=== PATIENT | female | born 1990 | race Caucasian/White ===

== ENCOUNTER 2018-03-21 09:28 | Inpatient (IN) | payer OTHER ==
[~2018-03-21] VITALS: Ht 157.5 cm; Wt 64.0 kg
[2018-03-21 09:58] VITALS: BP 107/66
[2018-03-21] MEDS ORDERED: INDOMETHACIN 50 MG CAPSULE PO ONE (11:00)
[2018-03-21] MEDS ORDERED: BETAMETHASONE 6 MG/ML, 5ML IM ONE (11:07)
[2018-03-21] MEDS ORDERED: INDOMETHACIN 50 MG CAPSULE ONE (11:08)
[2018-03-21] MEDS: BETAMETHASONE 6 MG/ML, 5ML IM SCH (11:21)
[2018-03-21] MEDS ORDERED: PENICILLIN GK 5,000,000 UNITS in SODIUM CHLORIDE 0.9% 100 ML IVPB ONE (11:30)
[2018-03-21 11:43] LABS: MICROSCOPIC NOT IND
[2018-03-21] MEDS: LACTATED RINGERS 1,000 ML IV SCH (11:50)
[2018-03-21 12:26] LABS: BASOPHILS # (AUTO) 0.05 x10^3/uL (0-0.1); BASOPHILS % (AUTO) 0 % (0-1); EOSINOPHILS # (AUTO) 0.01 x10^3/uL (0-0.4); EOSINOPHILS % (AUTO) 0 % (1-7); LYMPHOCYTES # (AUTO) 2.24 x10^3/uL (1-3.4); LYMPHOCYTES % (AUTO) 18 % (22-44); MD NO; MEAN CORPUSCULAR HEMOGLOBIN 29.6 pg (27.0-34.8); MEAN CORPUSCULAR HGB CONC 33.2 g/dL (32.4-35.8); MEAN CORPUSCULAR VOLUME 89.3 fL (80-100); MEAN PLATELET VOLUME 8.2 fL (7.4-10.4); MONOCYTES # (AUTO) 0.47 x10^3/uL (0.2-0.8); MONOCYTES % (AUTO) 4 % (2-9); NEUTROPHILS # (AUTO) 9.77 x10^3/uL (1.8-6.8); NEUTROPHILS % (AUTO) 78 % (42-75); PLATELET COUNT 324 x10^3/uL (130-400); RED BLOOD COUNT 4.09 x10^6/uL (3.82-5.3); RED CELL DISTRIBUTION WIDTH 13.4 % (9.6-15.2)
[2018-03-21] MEDS: PENICILLIN GK 2,500,000 UNITS in DEXTROSE 5% 100 ML IVPB SCH ×3 (15:30→23:40)
[2018-03-21] MEDS ORDERED: INDOMETHACIN 25 MG CAPSULE ONE ×3 (15:36→23:36)
[2018-03-21] MEDS: INDOMETHACIN 25 MG CAPSULE PO SCH ×3 (15:38→23:40)
[2018-03-21] MEDS ORDERED: INSULIN LISPRO 100 UNITS/ML, PEN SQ-INSULIN SCH ×3 (16:00→17:00)
[2018-03-21] MEDS ORDERED: INSULIN REGULAR 100 UNITS/ML, 3ML VIAL SQ-INSULIN SCH (17:00)
[2018-03-21 20:06] VITALS: BP 116/66
[2018-03-21] MEDS: INSULIN GLARGINE 100 UNITS/ML, PEN SQ-INSULIN SCH (21:10)
[2018-03-21] MEDS: INSULIN LISPRO 100 UNITS/ML, PEN SQ-INSULIN SCH (21:13)
[2018-03-21] MEDS ORDERED: PRENATAL VIT/IRON/FA 1 EACH TABLET ONE (21:58)
[2018-03-21] MEDS ORDERED: CALCIUM CARBONATE 500 MG TAB.CHEW PO PRN (22:00)
[2018-03-21] MEDS: PRENATAL VIT/IRON/FA 1 EACH TABLET PO SCH (22:11)
[2018-03-21] MEDS ORDERED: ACETAMINOPHEN 325 MG TABLET PO PRN (22:30)
[2018-03-22] MEDS ORDERED: INDOMETHACIN 25 MG CAPSULE ONE ×5 (03:08→20:20)
[2018-03-22] MEDS ORDERED: METHYLERGONOVINE 0.2 MG/ML IM ONE (03:11)
[2018-03-22] MEDS: INDOMETHACIN 25 MG CAPSULE PO SCH ×5 (03:41→20:25)
[2018-03-22] MEDS: PENICILLIN GK 2,500,000 UNITS in DEXTROSE 5% 100 ML IVPB SCH ×6 (03:41→20:25)
[2018-03-22] MEDS: INSULIN LISPRO 100 UNITS/ML, PEN SQ-INSULIN SCH ×4 (07:54→16:40)
[2018-03-22] MEDS: SODIUM CHLORIDE FLUSH 3ML SYRINGE IVF PRN ×3 (09:18→18:20)
[2018-03-22] MEDS: BETAMETHASONE 6 MG/ML, 5ML IM SCH (11:58)
[2018-03-22] MEDS: INSULIN GLARGINE 100 UNITS/ML, PEN SQ-INSULIN SCH (21:09)
[2018-03-23] MEDS ORDERED: INDOMETHACIN 25 MG CAPSULE ONE ×4 (01:04→13:41)
[2018-03-23] MEDS: INDOMETHACIN 25 MG CAPSULE PO SCH ×4 (01:05→13:43)
[2018-03-23] MEDS: PENICILLIN GK 2,500,000 UNITS in DEXTROSE 5% 100 ML IVPB SCH ×4 (01:05→13:42)
[2018-03-23] MEDS ORDERED: PRENATAL VIT/IRON/FA 1 EACH TABLET ONE (08:58)
[2018-03-23] MEDS ORDERED: DOCUSATE 100 MG CAPSULE ONE (08:58)
[2018-03-23] MEDS: LACTATED RINGERS 1,000 ML IV SCH (09:17)
[2018-03-23] MEDS: DOCUSATE 100 MG CAPSULE PO SCH (09:18)
[2018-03-23] MEDS: INSULIN LISPRO 100 UNITS/ML, PEN SQ-INSULIN SCH ×4 (09:45→21:00)
[2018-03-23] MEDS ORDERED: INSULIN LISPRO 100 UNITS/ML, PEN SQ-INSULIN ONE (12:00)
[2018-03-23] MEDS ORDERED: PSYLLIUM PACKET PO PRN (16:30)
[2018-03-23 19:59] VITALS: BP 106/59
[2018-03-23] MEDS: PRENATAL VIT/IRON/FA 1 EACH TABLET PO SCH (21:00)
[2018-03-23] MEDS: INSULIN GLARGINE 100 UNITS/ML, PEN SQ-INSULIN SCH (21:03)
[2018-03-24] MEDS: INSULIN LISPRO 100 UNITS/ML, PEN SQ-INSULIN SCH ×4 (07:39→16:44)
[2018-03-24] MEDS ORDERED: DOCUSATE 100 MG CAPSULE ONE ×2 (08:02→20:58)
[2018-03-24] MEDS: DOCUSATE 100 MG CAPSULE PO SCH ×2 (08:45→21:08)
[2018-03-24] MEDS: SODIUM CHLORIDE FLUSH 3ML SYRINGE IVF PRN (08:57)
[2018-03-24] MEDS: INSULIN GLARGINE 100 UNITS/ML, PEN SQ-INSULIN SCH (21:06)
[2018-03-24 21:09] VITALS: BP 115/59
[2018-03-25] MEDS: SODIUM CHLORIDE FLUSH 3ML SYRINGE IVF PRN (09:00)
[2018-03-25] MEDS: DOCUSATE 100 MG CAPSULE PO SCH (09:00)
[2018-03-25] MEDS: PRENATAL VIT/IRON/FA 1 EACH TABLET PO SCH (09:00)
[2018-03-25] MEDS ORDERED: DOCUSATE 100 MG CAPSULE ONE (20:08)
[2018-03-25] MEDS: INSULIN GLARGINE 100 UNITS/ML, PEN SQ-INSULIN SCH (21:04)
[2018-03-26] MEDS: INSULIN LISPRO 100 UNITS/ML, PEN SQ-INSULIN SCH ×2 (07:37→07:45)
[2018-03-26] MEDS: SODIUM CHLORIDE FLUSH 3ML SYRINGE IVF PRN ×2 (08:21→21:00)
[2018-03-26] MEDS ORDERED: DOCUSATE 100 MG CAPSULE ONE (08:48)
[2018-03-26] MEDS: DOCUSATE 100 MG CAPSULE PO SCH (08:50)
[2018-03-26] MEDS: PRENATAL VIT/IRON/FA 1 EACH TABLET PO SCH ×2 (09:00→21:00)
[2018-03-26] MEDS: INSULIN GLARGINE 100 UNITS/ML, PEN SQ-INSULIN SCH (21:00)
[2018-03-27] MEDS: INSULIN LISPRO 100 UNITS/ML, PEN SQ-INSULIN SCH ×3 (07:00→12:13)
[2018-03-27] MEDS ORDERED: ERYTHROMYCIN 250 MG in SODIUM CHLORIDE 0.9% 100 ML IV SCH (14:00)
[2018-03-27] MEDS: AMPICILLIN 2 GM in SODIUM CHLORIDE 0.9% 100 ML IV SCH ×2 (14:45→20:05)
[2018-03-27] MEDS ORDERED: LACTATED RINGERS 1,000 ML IV SCH ×2 (15:00→15:01)
[2018-03-27] MEDS ORDERED: HYDROXYZINE PAMOATE 50MG CAP PO PRN (16:00)
[2018-03-27] MEDS: AZITHROMYCIN 500 MG in SODIUM CHLORIDE 0.9% 250 ML IV SCH (16:30)
[2018-03-27] MEDS ORDERED: DOCUSATE 100 MG CAPSULE ONE (19:59)
[2018-03-27] MEDS: DOCUSATE 100 MG CAPSULE PO SCH ×2 (20:04→21:00)
[2018-03-27] MEDS: SODIUM CHLORIDE FLUSH 3ML SYRINGE IVF PRN (20:06)
[2018-03-27] MEDS: PRENATAL VIT/IRON/FA 1 EACH TABLET PO SCH (21:00)
[2018-03-28] MEDS: AMPICILLIN 2 GM in SODIUM CHLORIDE 0.9% 100 ML IV SCH ×3 (01:51→19:47)
[2018-03-28] MEDS ORDERED: DOCUSATE 100 MG CAPSULE ONE (07:57)
[2018-03-28] MEDS: DOCUSATE 100 MG CAPSULE PO SCH ×2 (07:59→09:00)
[2018-03-28] MEDS: INSULIN LISPRO 100 UNITS/ML, PEN SQ-INSULIN SCH ×3 (08:01→16:39)
[2018-03-28] MEDS: PRENATAL VIT/IRON/FA 1 EACH TABLET PO SCH (09:00)
[2018-03-28] MEDS: AZITHROMYCIN 500 MG in SODIUM CHLORIDE 0.9% 250 ML IV SCH (14:50)
[2018-03-28] MEDS: SODIUM CHLORIDE FLUSH 3ML SYRINGE IVF PRN (19:46)
[2018-03-29] MEDS: AMPICILLIN 2 GM in SODIUM CHLORIDE 0.9% 100 ML IV SCH ×2 (01:57→08:50)
[2018-03-29 08:00] VITALS: BP 114/71
[2018-03-29] MEDS ORDERED: PRENATAL VIT/IRON/FA 1 EACH TABLET ONE (08:12)
[2018-03-29] MEDS ORDERED: DOCUSATE 100 MG CAPSULE ONE (08:12)
[2018-03-29] MEDS ORDERED: AZITHROMYCIN 250 MG TABLET ONE (08:12)
[2018-03-29] MEDS: DOCUSATE 100 MG CAPSULE PO SCH (08:48)
[2018-03-29] MEDS: PRENATAL VIT/IRON/FA 1 EACH TABLET PO SCH (09:00)
[2018-03-29] MEDS ORDERED: ERYTHROMYCIN 400 MG/5 ML PO SCH (14:00)
[2018-03-29] MEDS: AZITHROMYCIN 250 MG TABLET PO SCH (14:30)
[2018-03-29] MEDS ORDERED: AMPICILLIN 250MG CAPSULE PO SCH ×2 (16:00)
[2018-03-29] MEDS: AMOXICILLIN 250 MG CAPSULE PO SCH (19:22)
[2018-03-30] MEDS ORDERED: AZITHROMYCIN 250 MG TABLET ONE (07:59)
[2018-03-30] MEDS ORDERED: DOCUSATE 100 MG CAPSULE ONE (08:00)
[2018-03-30] MEDS: AZITHROMYCIN 250 MG TABLET PO SCH (09:00)
[2018-03-30] MEDS: PRENATAL VIT/IRON/FA 1 EACH TABLET PO SCH (09:00)
[2018-03-30] MEDS: AMOXICILLIN 250 MG CAPSULE PO SCH ×3 (09:00→20:56)
[2018-03-30] MEDS: DOCUSATE 100 MG CAPSULE PO SCH (09:05)
[2018-03-30] MEDS: INSULIN GLARGINE 100 UNITS/ML, PEN SQ-INSULIN SCH (20:54)
[2018-03-30] MEDS: SODIUM CHLORIDE FLUSH 3ML SYRINGE IVF PRN (21:00)
[2018-03-31 07:30] VITALS: BP 108/70
[2018-03-31] MEDS ORDERED: AMOXICILLIN 250 MG CAPSULE ONE ×3 (08:51→21:08)
[2018-03-31] MEDS ORDERED: DOCUSATE 100 MG CAPSULE ONE (08:51)
[2018-03-31] MEDS ORDERED: AZITHROMYCIN 250 MG TABLET ONE (08:51)
[2018-03-31] MEDS: DOCUSATE 100 MG CAPSULE PO SCH (08:53)
[2018-03-31] MEDS: AZITHROMYCIN 250 MG TABLET PO SCH (08:53)
[2018-03-31] MEDS: AMOXICILLIN 250 MG CAPSULE PO SCH ×3 (08:53→21:10)
[2018-03-31] MEDS: SODIUM CHLORIDE FLUSH 3ML SYRINGE IVF PRN (08:54)
[2018-03-31] MEDS: PRENATAL VIT/IRON/FA 1 EACH TABLET PO SCH (09:00)
[2018-03-31] MEDS: INSULIN LISPRO 100 UNITS/ML, PEN SQ-INSULIN SCH (16:43)
[2018-03-31] MEDS: INSULIN GLARGINE 100 UNITS/ML, PEN SQ-INSULIN SCH (21:10)
[2018-04-01] MEDS ORDERED: INSULIN LISPRO 100 UNITS/ML, PEN SQ-INSULIN SCH ×3 (07:30→12:00)
[2018-04-01 08:11] VITALS: BP 103/62
[2018-04-01] MEDS ORDERED: AMOXICILLIN 250 MG CAPSULE ONE ×3 (08:59→23:22)
[2018-04-01] MEDS: PRENATAL VIT/IRON/FA 1 EACH TABLET PO SCH (09:00)
[2018-04-01] MEDS: DOCUSATE 100 MG CAPSULE PO SCH ×3 (09:00→21:00)
[2018-04-01] MEDS ORDERED: AZITHROMYCIN 250 MG TABLET ONE (09:00)
[2018-04-01] MEDS: AMOXICILLIN 250 MG CAPSULE PO SCH ×3 (09:03→23:25)
[2018-04-01] MEDS: AZITHROMYCIN 250 MG TABLET PO SCH (09:03)
[2018-04-01] MEDS ORDERED: DOCUSATE 100 MG CAPSULE ONE (09:05)
[2018-04-01] MEDS: SODIUM CHLORIDE FLUSH 3ML SYRINGE IVF PRN ×2 (09:07→20:00)
[2018-04-01] MEDS: INSULIN LISPRO 100 UNITS/ML, PEN SQ-INSULIN SCH ×3 (09:14→16:32)
[2018-04-01] MEDS: INSULIN GLARGINE 100 UNITS/ML, PEN SQ-INSULIN SCH (21:00)
[2018-04-02 05:11] LABS: BASOPHILS # (AUTO) 0.04 x10^3/uL (0-0.1); BASOPHILS % (AUTO) 0 % (0-1); EOSINOPHILS # (AUTO) 0.04 x10^3/uL (0-0.4); EOSINOPHILS % (AUTO) 0 % (1-7); LYMPHOCYTES # (AUTO) 3.04 x10^3/uL (1-3.4); LYMPHOCYTES % (AUTO) 22 % (22-44); MD NO; MEAN CORPUSCULAR HEMOGLOBIN 29.6 pg (27.0-34.8); MEAN CORPUSCULAR HGB CONC 33.3 g/dL (32.4-35.8); MEAN CORPUSCULAR VOLUME 88.7 fL (80-100); MEAN PLATELET VOLUME 8.7 fL (7.4-10.4); MONOCYTES # (AUTO) 0.73 x10^3/uL (0.2-0.8); MONOCYTES % (AUTO) 5 % (2-9); NEUTROPHILS # (AUTO) 9.87 x10^3/uL (1.8-6.8); NEUTROPHILS % (AUTO) 72 % (42-75); PLATELET COUNT 289 x10^3/uL (130-400); RED BLOOD COUNT 4.09 x10^6/uL (3.82-5.3); RED CELL DISTRIBUTION WIDTH 13.7 % (9.6-15.2)
[2018-04-02] MEDS: INSULIN LISPRO 100 UNITS/ML, PEN SQ-INSULIN SCH ×3 (07:40→16:41)
[2018-04-02] MEDS ORDERED: AZITHROMYCIN 250 MG TABLET ONE (08:25)
[2018-04-02] MEDS ORDERED: AMOXICILLIN 250 MG CAPSULE ONE ×3 (08:25→21:10)
[2018-04-02] MEDS ORDERED: DOCUSATE 100 MG CAPSULE ONE ×2 (08:25→20:27)
[2018-04-02 08:43] VITALS: BP 119/74
[2018-04-02] MEDS: DOCUSATE 100 MG CAPSULE PO SCH ×4 (08:43→21:06)
[2018-04-02] MEDS: AMOXICILLIN 250 MG CAPSULE PO SCH ×3 (08:44→21:00)
[2018-04-02] MEDS: AZITHROMYCIN 250 MG TABLET PO SCH (08:44)
[2018-04-02] MEDS: PRENATAL VIT/IRON/FA 1 EACH TABLET PO SCH (09:00)
[2018-04-02 19:35] VITALS: BP 112/71
[2018-04-02] MEDS: INSULIN GLARGINE 100 UNITS/ML, PEN SQ-INSULIN SCH (21:00)
[2018-04-03] MEDS: INSULIN LISPRO 100 UNITS/ML, PEN SQ-INSULIN SCH ×3 (08:08→16:47)
[2018-04-03] MEDS ORDERED: AMOXICILLIN 250 MG CAPSULE ONE (08:11)
[2018-04-03] MEDS: AMOXICILLIN 250 MG CAPSULE PO SCH (08:14)
[2018-04-03] MEDS: PRENATAL VIT/IRON/FA 1 EACH TABLET PO SCH (09:00)
[2018-04-03] MEDS: DOCUSATE 100 MG CAPSULE PO SCH ×3 (09:00→21:00)
[2018-04-03] MEDS ORDERED: DOCUSATE 100 MG CAPSULE ONE (16:48)
[2018-04-03] MEDS: INSULIN GLARGINE 100 UNITS/ML, PEN SQ-INSULIN SCH (21:00)
[2018-04-03 22:58] VITALS: BP 117/71
[2018-04-04] MEDS: INSULIN LISPRO 100 UNITS/ML, PEN SQ-INSULIN SCH ×4 (07:45→16:45)
[2018-04-04] MEDS: PRENATAL VIT/IRON/FA 1 EACH TABLET PO SCH (09:00)
[2018-04-04] MEDS: DOCUSATE 100 MG CAPSULE PO SCH ×3 (09:00→21:00)
[2018-04-04] MEDS ORDERED: DOCUSATE 100 MG CAPSULE ONE (20:45)
[2018-04-04] MEDS: INSULIN GLARGINE 100 UNITS/ML, PEN SQ-INSULIN SCH (20:52)
[2018-04-05] MEDS: INSULIN LISPRO 100 UNITS/ML, PEN SQ-INSULIN SCH ×3 (07:50→16:30)
[2018-04-05] MEDS: DOCUSATE 100 MG CAPSULE PO SCH ×3 (09:00→21:00)
[2018-04-05] MEDS: PRENATAL VIT/IRON/FA 1 EACH TABLET PO SCH (09:00)
[2018-04-05] MEDS ORDERED: DOCUSATE 100 MG CAPSULE ONE ×2 (14:19→20:56)
[2018-04-05] MEDS: INSULIN GLARGINE 100 UNITS/ML, PEN SQ-INSULIN SCH (20:59)
[2018-04-06] MEDS: INSULIN LISPRO 100 UNITS/ML, PEN SQ-INSULIN SCH ×4 (08:11→16:43)
[2018-04-06 08:15] VITALS: BP 105/66
[2018-04-06] MEDS: DOCUSATE 100 MG CAPSULE PO SCH ×2 (08:47→16:46)
[2018-04-06] MEDS: PRENATAL VIT/IRON/FA 1 EACH TABLET PO SCH (16:46)
[2018-04-06] MEDS: INSULIN GLARGINE 100 UNITS/ML, PEN SQ-INSULIN SCH (21:00)
[2018-04-07] MEDS: INSULIN LISPRO 100 UNITS/ML, PEN SQ-INSULIN SCH ×4 (07:46→18:04)
[2018-04-07] MEDS: DOCUSATE 100 MG CAPSULE PO SCH ×2 (07:47→21:07)
[2018-04-07] MEDS: PRENATAL VIT/IRON/FA 1 EACH TABLET PO SCH (09:00)
[2018-04-07] MEDS ORDERED: DOCUSATE 100 MG CAPSULE ONE (21:07)
[2018-04-07] MEDS: INSULIN GLARGINE 100 UNITS/ML, PEN SQ-INSULIN SCH (21:08)
[2018-04-08] MEDS: INSULIN LISPRO 100 UNITS/ML, PEN SQ-INSULIN SCH ×2 (07:53→12:11)
[2018-04-08] MEDS: PRENATAL VIT/IRON/FA 1 EACH TABLET PO SCH (09:00)
[2018-04-08] MEDS: DOCUSATE 100 MG CAPSULE PO SCH ×2 (09:00→21:00)
[2018-04-08] MEDS: INSULIN LISPRO 100 UNITS/ML, PEN SQ-INSULIN PRN (17:25)
[2018-04-08 20:01] VITALS: BP 118/65
[2018-04-08] MEDS: INSULIN GLARGINE 100 UNITS/ML, PEN SQ-INSULIN SCH (21:08)
[2018-04-09] MEDS: INSULIN LISPRO 100 UNITS/ML, PEN SQ-INSULIN PRN (07:58)
[2018-04-09 08:02] VITALS: BP 109/69
[2018-04-09] MEDS ORDERED: DOCUSATE 100 MG CAPSULE ONE ×2 (08:44→20:47)
[2018-04-09] MEDS: PRENATAL VIT/IRON/FA 1 EACH TABLET PO SCH (09:00)
[2018-04-09] MEDS: DOCUSATE 100 MG CAPSULE PO SCH (09:09)
[2018-04-09] MEDS: INSULIN LISPRO 100 UNITS/ML, PEN SQ-INSULIN SCH ×2 (11:59→17:22)
[2018-04-09] MEDS: INSULIN GLARGINE 100 UNITS/ML, PEN SQ-INSULIN SCH (21:00)
[2018-04-10] MEDS ORDERED: DOCUSATE 100 MG CAPSULE ONE (08:01)
[2018-04-10] MEDS: DOCUSATE 100 MG CAPSULE PO SCH ×2 (08:04→21:00)
[2018-04-10] MEDS: INSULIN LISPRO 100 UNITS/ML, PEN SQ-INSULIN SCH ×3 (08:04→17:36)
[2018-04-10] MEDS: INSULIN GLARGINE 100 UNITS/ML, PEN SQ-INSULIN SCH (21:00)
[2018-04-11] MEDS ORDERED: DOCUSATE 100 MG CAPSULE ONE (07:11)
[2018-04-11] MEDS: DOCUSATE 100 MG CAPSULE PO SCH ×2 (08:06→21:00)
[2018-04-11] MEDS: INSULIN LISPRO 100 UNITS/ML, PEN SQ-INSULIN PRN (08:09)
[2018-04-11] MEDS: INSULIN LISPRO 100 UNITS/ML, PEN SQ-INSULIN SCH ×3 (12:15→18:24)
[2018-04-11] MEDS ORDERED: DIPHENHYDRAMINE/ZINC CRM 2%, 30GM TP PRN (19:30)
[2018-04-11] MEDS: INSULIN GLARGINE 100 UNITS/ML, PEN SQ-INSULIN SCH (21:10)
[2018-04-12] MEDS: INSULIN LISPRO 100 UNITS/ML, PEN SQ-INSULIN SCH ×2 (08:12→12:01)
[2018-04-12] MEDS: DOCUSATE 100 MG CAPSULE PO SCH ×2 (09:00→21:00)
[2018-04-12 09:26] VITALS: BP 91/53
[2018-04-12] MEDS: INSULIN LISPRO 100 UNITS/ML, PEN SQ-INSULIN PRN (16:13)
[2018-04-12] MEDS: INSULIN GLARGINE 100 UNITS/ML, PEN SQ-INSULIN SCH (21:08)
[2018-04-12 21:17] VITALS: BP 101/62
[2018-04-13] MEDS: INSULIN LISPRO 100 UNITS/ML, PEN SQ-INSULIN SCH ×4 (07:00→18:13)
[2018-04-13] MEDS ORDERED: LACTATED RINGERS 1,000 ML IV SCH (08:43)
[2018-04-13] MEDS ORDERED: OXYTOCIN 30U/ 0.9% NaCL 500ML 500 ML IV ONE ×2 (08:43)
[2018-04-13] MEDS ORDERED: OXYTOCIN 30U/ 0.9% NaCL 500ML 500 ML ONE ×2 (08:52→13:53)
[2018-04-13] MEDS ORDERED: NEWBORN KIT ONE (08:52)
[2018-04-13 09:00] LABS: BASOPHILS # (AUTO) 0.12 x10^3/uL (0-0.1); BASOPHILS % (AUTO) 1 % (0-1); EOSINOPHILS # (AUTO) 0.22 x10^3/uL (0-0.4); EOSINOPHILS % (AUTO) 2 % (1-7); LYMPHOCYTES # (AUTO) 2.25 x10^3/uL (1-3.4); LYMPHOCYTES % (AUTO) 16 % (22-44); MD NO; MEAN CORPUSCULAR HEMOGLOBIN 29.2 pg (27.0-34.8); MEAN CORPUSCULAR HGB CONC 33.2 g/dL (32.4-35.8); MEAN CORPUSCULAR VOLUME 87.9 fL (80-100); MEAN PLATELET VOLUME 8.4 fL (7.4-10.4); MONOCYTES # (AUTO) 0.76 x10^3/uL (0.2-0.8); MONOCYTES % (AUTO) 6 % (2-9); NEUTROPHILS # (AUTO) 10.43 x10^3/uL (1.8-6.8); NEUTROPHILS % (AUTO) 76 % (42-75); PLATELET COUNT 268 x10^3/uL (130-400); RED BLOOD COUNT 4.24 x10^6/uL (3.82-5.3); RED CELL DISTRIBUTION WIDTH 14.6 % (9.6-15.2)
[2018-04-13] MEDS ORDERED: ONDANSETRON 2MG/ML, 2ML IVPush PRN (09:00)
[2018-04-13] MEDS ORDERED: FENTANYL PF 100 MCG/2ML IV PRN (09:00)
[2018-04-13] MEDS ORDERED: FENTANYL PF 100 MCG/2ML IVPush PRN (09:00)
[2018-04-13] MEDS ORDERED: SODIUM CITRATE/CITRIC ACID 30 ML UDC PO PRN (09:00)
[2018-04-13] MEDS: DOCUSATE 100 MG CAPSULE PO SCH ×2 (09:00→21:09)
[2018-04-13] MEDS ORDERED: MISOPROSTOL 200 MCG TABLET ONE (10:12)
[2018-04-13] MEDS ORDERED: LIDOCAINE/PF 1%, 30ML ONE (10:15)
[2018-04-13] MEDS: OXYTOCIN 30U/ 0.9% NaCL 500ML 500 ML IV SCH ×2 (12:56→22:56)
[2018-04-13] MEDS ORDERED: METHYLERGONOVINE 0.2 MG/ML IM PRN (13:00)
[2018-04-13] MEDS ORDERED: MISOPROSTOL 200 MCG TABLET PR PRN (13:00)
[2018-04-13] MEDS ORDERED: ONDANSETRON 2MG/ML, 2ML IV PRN (13:00)
[2018-04-13] MEDS ORDERED: OXYcodone IR 5MG TABLET PO PRN ×2 (13:00)
[2018-04-13] MEDS ORDERED: CARBOPROST TROMETHAMINE 250 MCG/ML, 1ML IM PRN (13:00)
[2018-04-13] MEDS ORDERED: IBUPROFEN 800 MG TABLET ONE (13:53)
[2018-04-13] MEDS: IBUPROFEN 800 MG TABLET PO PRN ×2 (13:54→22:02)
[2018-04-13 16:00] VITALS: BP 106/69
[2018-04-13 20:00] VITALS: BP 115/76
[2018-04-13 21:10] LABS: MEAN CORPUSCULAR HEMOGLOBIN 29.9 pg (27.0-34.8); MEAN CORPUSCULAR HGB CONC 33.6 g/dL (32.4-35.8); MEAN CORPUSCULAR VOLUME 88.8 fL (80-100); MEAN PLATELET VOLUME 8.9 fL (7.4-10.4); PLATELET COUNT 264 x10^3/uL (130-400); RED BLOOD COUNT 3.34 x10^6/uL (3.82-5.3); RED CELL DISTRIBUTION WIDTH 14.2 % (9.6-15.2)
[2018-04-13] MEDS: INSULIN GLARGINE 100 UNITS/ML, PEN SQ-INSULIN SCH (21:10)
[2018-04-13 21:25] LABS: MD YES
[2018-04-13 21:27] LABS: BAND#(MANUAL) 0.38 x10^3/uL; BANDS%(MANUAL) 2 % (0-7); LYMPHS% (MANUAL) 18 % (22-44); MONOS#(MANUAL) 0.38 x10^3/uL (0.3-2.7); MONOS% (MANUAL) 2 % (2-9); SEG#(MANUAL) 14.74 x10^3/uL (1.8-6.8); SEGS% (MANUAL) 78 % (42-75)
[2018-04-13 21:28] LABS: <PLATELET ESTIMATE> ADEQUATE; LARGE PLATELETS 1+; POLYCHROMASIA 1+
[2018-04-14 00:15] VITALS: BP 109/70
[2018-04-14 04:00] VITALS: BP 121/85
[2018-04-14] MEDS: IBUPROFEN 800 MG TABLET PO PRN ×2 (07:26→21:31)
[2018-04-14] MEDS: INSULIN LISPRO 100 UNITS/ML, PEN SQ-INSULIN SCH ×3 (07:27→16:00)
[2018-04-14 08:00] VITALS: BP 120/69
[2018-04-14] MEDS: DOCUSATE 100 MG CAPSULE PO SCH ×2 (08:08→21:31)
[2018-04-14] MEDS: OXYTOCIN 30U/ 0.9% NaCL 500ML 500 ML IV SCH ×2 (08:56→18:56)
[2018-04-14] MEDS: PRENATAL VIT/IRON/FA 1 EACH TABLET PO SCH (09:00)
[2018-04-14 12:23] VITALS: BP 111/74
[2018-04-14] MEDS ORDERED: INSULIN GLARGINE 100 UNITS/ML, PEN SQ-INSULIN SCH (21:00)
[2018-04-14 21:30] VITALS: BP 109/74
[2018-04-15] MEDS: OXYTOCIN 30U/ 0.9% NaCL 500ML 500 ML IV SCH ×2 (04:56→14:56)
[2018-04-15 07:05] VITALS: BP 123/77
[2018-04-15] MEDS: DOCUSATE 100 MG CAPSULE PO SCH (08:05)
[2018-04-15] MEDS: IBUPROFEN 800 MG TABLET PO PRN (08:06)
[2018-04-15] MEDS: INSULIN LISPRO 100 UNITS/ML, PEN SQ-INSULIN SCH ×2 (08:08→11:00)
[2018-04-15] MEDS ORDERED: IBUP-1222 PO (08:23)
[2018-04-15] MEDS: PRENATAL VIT/IRON/FA 1 EACH TABLET PO SCH (08:26)
== END 2018-04-15 15:47 | disposition home or self-care (01) | DRG 805 ==
LOC: LDOP 09:28 → LDIP 10:50 → 2NW 04-13 15:00
PROVIDERS: ADMIT Obstetrics & Gynecology; ATTEND Obstetrics & Gynecology
PROC: 10E0XZZ Delivery of Products of Conception, External Approach (ICD-10-PCS; principal; 2018-04-13)
PROC: 0KQM0ZZ Repair Perineum Muscle, Open Approach (ICD-10-PCS; 2018-04-13)
PROC: 10907ZC Drainage of Amniotic Fluid, Therapeutic from Products of Conception, Via Natural or Artificial Opening (ICD-10-PCS; 2018-04-13)
DX: O60.14X0 Preterm labor third trimester with preterm delivery third trimester, not applicable or unspecified (principal); O24.02 Pre-existing type 1 diabetes mellitus, in childbirth; Z37.0 Single live birth; E10.65 Type 1 diabetes mellitus with hyperglycemia; O36.5930 Maternal care for other known or suspected poor fetal growth, third trimester, not applicable or unspecified; O66.0 Obstructed labor due to shoulder dystocia; Z3A.29 29 weeks gestation of pregnancy; Z83.3 Family history of diabetes mellitus; O69.81X0 Labor and delivery complicated by cord around neck, without compression, not applicable or unspecified; O70.1 Second degree perineal laceration during delivery
CPT/HCPCS: 36415; 76815; 76819; 81003; 82803; 82962; 84112; 85025; 86850; 86900; 87081; 87086; 88307; G0378; J0290; J0456; J0702; J1815; J2540; J2590; J7050; J7120